=== PATIENT | female | born 1925 | race Caucasian/White ===

== ENCOUNTER → 2017-02-21 | Outpatient (CLI) | payer MEDICARE, BC | END | disposition home or self-care (01) | LOC: LABPAT 09:22 | PROVIDERS: ATTEND Orthopaedic Surgery | DX: Z01.812 Encounter for preprocedural laboratory examination (principal) | CPT/HCPCS: 87070 ==

== ENCOUNTER 2017-03-02 11:01 | Inpatient (IN) | payer MEDICARE, BC ==
[2017-02-18 09:21] VITALS: BMI 23.2
--- NOTE | 2017-03-02 08:13 | P.HPOR ---
History of Present Illness H&P Date: 03/02/17 Chief Complaint: Left hip pain The patient is an 89-year-old retired female presents with progressive left hip pain for the past several years. It's worse recently. She does use a cane. It limits her normal function and activities. Review of Systems All systems: negative Past Medical History Past Medical History: Coronary Artery Disease (CAD), GERD/Reflux, Hyperlipidemia , Hypertension, Myocardial Infarction (DE), Osteoarthritis (OA), Rheumatoid Arthritis (RA) Additional Past Medical History / Comment(s): LEAKY HEART VALVE, HEART MURMER, HX FX TO SPINE, uses cane or walker Last Myocardial Infarction Date:: ? History of Any Multi-Drug Resistant Organisms: None Reported Past Surgical History: Appendectomy, Cholecystectomy, Heart Catheterization, Hysterectomy, Joint Replacement, Orthopedic Surgery Additional Past Surgical History / Comment(s): surgery on left hand for reconstruction, RT HIP REPLACEMENT,KIP KNEE REPLACEMENTS x2, revision of total rt hip arthroplasty, left cataract Past Anesthesia/Blood Transfusion Reactions: No Reported Reaction Smoking Status: Never smoker - Past Family History Mother Family Medical History: Diabetes Mellitus Additional Family Medical History / Comment(s): HEART PROBLEMS- AT AGE 94 Sister(s) Family Medical History: Cancer Additional Family Medical History / Comment(s): also sister with lung cancer Father History Unknown: Yes Medications and Allergies Home Medications Medication Instructions Recorded Confirmed Type Cetirizine HCl [Zyrtec] 10 mg PO DAILY 08/04/14 02/18/17 History Esomeprazole Magnesium [NexIUM] 40 mg PO DAILY 08/04/14 02/18/17 History Fluticasone/Salmeterol [Advair 1 inhalation PO DAILY 08/04/14 02/18/17 History 250-50 Diskus] Potassium Chloride [Klor-Con 20] 20 meq PO DAILY 08/04/14 02/18/17 History ALPRAZolam [Xanax] 0.25 mg PO BID PRN 01/17/15 02/18/17 History HYDROcodone/APAP 7.5-325MG [[place] 1 tab PO Q6HR 01/17/15 02/18/17 History 7.5-325] Indapamide [Lozol] 2.5 mg PO DAILY 01/17/15 02/18/17 History Verapamil HCl [Verapamil ER] 120 mg PO 1200 02/18/17 02/18/17 History Allergies Allergy/AdvReac Type Severity Reaction Status Date / Time codeine Allergy Severe Nausea & Verified 02/18/17 09:07 Vomiting & Diarrhea morphine Allergy Severe Nausea & Verified 02/18/17 09:07 Vomiting & Diarrhea latex Allergy Rash/Hives Verified 02/18/17 09:07 adhesive AdvReac Intermediate Rash/Hives Verified 02/18/17 09:07 chocolate flavor AdvReac Diarrhea Verified 02/18/17 09:07 cocoa AdvReac Diarrhea Verified 02/18/17 09:07 Physical Examination - Hip left Gait: antalgic Tenderness with palpation: anterior Pain with motion: internal rotation and hip flexion ROM: extension: normal ROM: flexion: 70 degrees ROM: internal rotation: 15 degrees ROM: external rotation: 40 degrees Crepitus with motion: Yes Strength: flexion: 5/5 Strength: abduction: 5/5 Tests: impingement tests: positive Results - Diagnostic results Hip x-ray: image reviewed (Left hip 2 views shows severe osteoarthrosis) Assessment and Plan (1) Primary localized osteoarthrosis of left hip Status: Acute Plan: I talked with the patient regarding her treatment options. At this point she's quite limited because of pain related to her left hip osteoarthrosis. We will plan to proceed with left total hip arthroplasty. We will institute DVT prophylaxis postoperatively. The patient underwent preoperative medical evaluation by Dr. Dalal. Time with Patient: Greater than 30
[~2017-03-02 11:01] MED LIST: ACETAMINOPHEN TAB 500 MG TAB PO ONE; MELOXICAM 7.5 MG TAB PO ONE; TRANEXAMIC ACID 1,000 MG in SODIUM CHLORIDE 0.9% 100 ML IVPB ONE; ceFAZolin 2 GM in SODIUM CHLORIDE 0.9% 100 ML IVPB ONE
[2017-03-02] MEDS: ONDANSETRON 4 MG/2 ML VIAL IVP ONE ×2 (11:50→15:13)
[2017-03-02] MEDS: LACTATED RINGERS 1,000 ML IV SCH ×2 (11:50→16:15)
[2017-03-02] MEDS: MIDAZOLAM 2 MG/2 ML VIAL IV PRN ×2 (12:15→12:26)
[2017-03-02] MEDS ORDERED: SUCCINYLCHOLINE CHLORIDE 100 MG/5 ML SYR IV ONE (13:20)
[2017-03-02] MEDS ORDERED: HEPARIN SODIUM,PORCINE 10,000 UNIT/ML 1 ML VIAL ONE (13:20)
[2017-03-02] MEDS ORDERED: PROPOFOL 10 MG/ML 20 ML VIAL IV ONE (13:20)
[2017-03-02] MEDS ORDERED: PHENYLEPHRINE-0.9% NACL SYG 1 MG/10 ML SYRINGE ONE (13:20)
[2017-03-02] MEDS ORDERED: TRANEXAMIC ACID 1,000 MG/10 ML VIAL ONE (13:20)
[2017-03-02] MEDS ORDERED: SODIUM CHLORIDE 0.9% IRRIG 1,000 ML BTL IRRIGATION ONE (13:20)
[2017-03-02] MEDS ORDERED: fentaNYL (PF) 50 MCG/ML 2 ML AMP ONE (13:20)
[2017-03-02] MEDS ORDERED: SODIUM CHLORIDE 0.9% 100 ML BAG ONE (13:20)
[2017-03-02] MEDS ORDERED: MIDAZOLAM 2 MG/2 ML VIAL ONE (13:20)
[2017-03-02] MEDS ORDERED: LIDOCAINE 1% INJ 10MG/ML (20 ML MDV) ONE (13:20)
[2017-03-02] MEDS ORDERED: NALOXONE 0.4 MG/ML 1 ML VIAL IV PRN (15:08)
[2017-03-02] MEDS ORDERED: HYDROmorphone 1 MG/ML 1 ML SYRINGE IVP PRN (15:08)
[2017-03-02] MEDS ORDERED: ONDANSETRON 4 MG/2 ML VIAL IVP PRN (15:08)
[2017-03-02] MEDS ORDERED: HYDROcodone/APAP 5-325MG 1 EACH TAB PO PRN ×2 (15:08)
--- NOTE | 2017-03-02 15:08 | P.OP ---
Date of Procedure: 03/02/17 Preoperative Diagnosis: Left hip severe osteoarthrosis-primary Postoperative Diagnosis: Same Procedure(s) Performed: Left total hip [id number] Implants: Depuy Corail size 12 collared standard femoral stem, 32 mm +5 cobalt chrome femoral head, 52 mm acetabular shell, neutral polyethylene liner. Anesthesia: VINNYA Surgeon: Taj Galvez Estimated Blood Loss (ml): 150 Pathology: other (Femoral head) Condition: stable Disposition: PACU Indications for Procedure: The patient is an 89-year-old female who presents with progressive left hip pain secondary to osteoarthrosis despite conservative measures. A discussion of the risks and benefits of operative intervention versus continued conservative measures was made with patient. She opted to proceed with surgery. Operative risks to include infection, neurovascular injury, development of blood clots, possible component loosening, possible component failure, leg length discrepancy, possible dislocation and need for subsequent procedures was discussed. Informed consent was obtained. Operative Findings: As below Description of Procedure: The patient was brought to the operating room, and after induction of general anesthesia was placed into a lateral decubitus position. The bony prominences were appropriately padded. The pelvis was stabilized perpendicular to the floor with a pegboard. Preoperative templating was performed to estimate component positioning incises. The left lower extremity was prepped and draped in a normal fashion. A longitudinal incision extending over the greater trochanter was then made extending proximally to level the ASIS and distally in line with the femoral shaft. The skin and subcutaneous tissues were divided sharply. Electrocautery was used for hemostasis. The fascia dima and gluteus shamika fascia was split in line with the skin incision. The muscle fibers were bluntly dissected proximally. The gluteus medius muscle was identified in the anterior two thirds detached from the greater trochanter with electrocautery. The gluteus minimus tendon was verified and detached in a similar fashion. A wide capsulotomy is performed. The hip was gently dislocated. The neck cut was then made at a 45 shaft and proximal 1/2 cm above the level lesser trochanter with a sagittal saw. The head was extracted. Attention was then paid towards preparing the acetabular. Anterior and posterior retractors were placed. Remaining capsular and labral tissue sharply excised clearly defining the acetabular margins. I began reaming with a 45 mm reamer taking care to initially medialize, then reaming at 45 of abduction and 20 of anteversion. The potential reaming was performed up to 51 mm. This was taken to a bleeding bony surface. The trial 52 mm the tablet shell was inserted again at 45 of abduction and 20 of anteversion. There is good rim fit and stability. The trial component was removed. The final component inserted in the same orientation and was fully seated. I did place one posterior superior 6.5 x 3 mm cancellus screw with good purchase. A neutral polyethylene liner was gently impacted. Pulsatile lavage was utilized. Attention was then paid towards preparing the proximal femur. A box chisel was used to open the metaphyseal region. A canal finder was used to find the femoral canal. Sequential broaches at 15 of anteversion with the leg perpendicular to the floor. I went up to a size 12 standard broach. This was fully seated. There is good rotational stability. A calcar mill was used to fashion a medial calcar. A standard neck along with a 32 mm +5 trial head was placed. The hip was gently reduced. It was taken through range of motion. I had good stability in flexion and extension with internal and external rotation. I felt there was adequate denominational of soft tissue tension. The hip was gently dislocated and the trial components were then removed. The size 12 standard collared stem was inserted with the leg perpendicular floor in 15 of anteversion. Again there was good rotational stability. A 32 mm +5 cobalt chrome head was gently impacted. The hip was gently reduced. Again it was taken through range of motion and felt to be stable in flexion and extension with internal and external rotation. Again I felt there was adequate denominational of soft tissue tension. Pulsatile lavage was again utilized. The gluteus minimus and medius tendons were reattached the greater trochanter with # 2 Ethibond suture. The fascia dima and gluteus shamika fascia was closed in a similar fashion. She did not have much drainage therefore a drain was not placed. The subcutaneous tissues reapproximated with interrupted 2-0 Vicryl sutures. The skin was reapproximated with 3-0 subcuticular strata fix suture. Skin tape and adhesive was applied. A sterile dressing was applied. The patient was awoken from general anesthesia and transferred to recovery room in fair condition. Blood loss was estimated 150 mL. Complications were incurred. Sponge and needle counts were correct in the case.
[2017-03-02] MEDS: diphenhydrAMINE 50 MG/ML 1 ML VIAL IVP ONE ×2 (15:26→15:42)
[2017-03-02] MEDS: HYDROmorphone 1 MG/ML 1 ML SYRINGE IVP ONE ×2 (15:33→15:43)
[2017-03-02] MEDS ORDERED: HYDROmorphone 1 MG/ML 1 ML SYRINGE IVP ONE (15:33)
--- NOTE | 2017-03-02 15:39 | XR ---
EXAMINATION TYPE: XR Hip Limited LT DATE OF EXAM: 03/02/2017 COMPARISON: NONE HISTORY: Postop left hip TECHNIQUE: Left hip is examined in single AP view FINDINGS: Femoral prosthesis is present. Acetabular component is present. No acute fractures are evid ent. Postsurgical changes are present. IMPRESSION: 1. No acute fractures post left hip replacement
[2017-03-02] MEDS: HYDROmorphone 1 MG/ML 1 ML SYRINGE IVP PRN ×2 (16:13→21:06)
[2017-03-02 17:19] LABS: Basophils % (A) 0 %; CH 31.3; CHCM 34.1; Eosinophils # (A) 0.1 k/uL (0-0.7); Eosinophils % (A) 0 %; HCT 34.3 % (34.0-46.0); HDW 2.55; HGB 12.1 gm/dL (11.4-16.0); Luc # (Auto) 0.18; Luc % (Auto) 1; Lymphocytes # (A) 0.6 k/uL (1.0-4.8); Lymphocytes % (A) 5 %; MCH 32.6 pg (25.0-35.0); MCHC 35.2 g/dL (31.0-37.0); MCV 92.5 fL (80.0-100.0); Mean Platelet Volume 8.1; Monocytes # (A) 0.6 k/uL (0-1.0); Monocytes % (A) 5 %; Neutrophils # (A) 11.3 k/uL (1.3-7.7); Neutrophils % (A) 88 %; RBC 3.71 m/uL (3.80-5.40); RDW 13.4 % (11.5-15.5); WBC 12.8 k/uL (3.8-10.6); WBC (Perox) 13.19
[2017-03-02] MEDS: HYDROcodone/APAP 10-325MG 1 EACH TAB PO PRN (18:02)
--- NOTE | 2017-03-02 19:25 | CONS ---
DATE OF CONSULTATION: 03/02/2017 REASON FOR CONSULTATION: Advice regarding CAD, hypertension and other medical issues, requested by Orthopedic Surgery. HISTORY OF PRESENT ILLNESS: This 89-year-old woman with a past medical history of multiple medical problems, including CAD, hypertension, hyperlipidemia, history of myocardial infarction, rheumatoid arthritis, being followed by Dr. Dalal in the outpatient setting, underwent left total hip joint arthroplasty. Postoperatively the patient is slightly nauseous. There is no history of any fever, rigor or chills. No history of headache, loss of consciousness, seizures. The patient has a history of aortic stenosis, also. PAST MEDICAL HISTORY: 1. History of CAD. 2. GERD. 3. Hypertension. 4. Hyperlipidemia. 5. History of myocardial infarction. 6. History of DJD. 7. Rheumatoid arthritis. HOME MEDICATIONS: 1. Piggott 10 mg q.6 p.r.n. 2. Advair 250/50 one puff daily. 3. Verapamil ER 120 mg daily. 4. Klor-Con 20 mEq p.o. daily. 5. Lozol 2.5 mg daily. 6. Nexium 40 mg daily. 7. Zyrtec 10 mg daily. 8. Aspirin 81 mg daily. 9. Xanax 0.25 b.i.b. p.r.n. 10. Xarelto 10 mg daily. ALLERGIES: 1. CODEINE. 2. MORPHINE. 3. LATEX. 4. ADHESIVES. 5. CHOCOLATE FLAVOR. 6. COCOA. FAMILY HISTORY: History of diabetes mellitus in the family. SOCIAL HISTORY: No history smoking. No history of alcohol intake. REVIEW OF SYSTEMS: ENT: Diminished hearing. Diminished vision. CARDIOVASCULAR SYSTEM: As mentioned earlier. RESPIRATORY SYSTEM: No cough, hemoptysis. GI: No nausea, vomiting. : No dysuria, retention. NERVOUS SYSTEM: No numbness, weakness. ALLERGY/IMMUNOLOGY: No asthma, hayfever. MUSCULOSKELETAL: As mentioned earlier. HEMATOLOGY/ONCOLOGY: No history of anemia. ENDOCRINE: No history of diabetes or hypothyroidism. CONSTITUTIONAL: As mentioned earlier. DERMATOLOGIC: Negative. RHEUMATOLOGIC: Negative. PSYCHIATRY: As mentioned earlier. PHYSICAL EXAMINATION: Patient is alert and oriented x3. Pulse is 78, blood pressure 118/58, respirations 18, temperature 97.8, pulse ox 100% on 2 L. HEENT: Conjunctivae normal. Oral mucosa moist. NECK: No jugular venous congestion. No carotid bruit. No lymph node enlargement. CARDIAC: S1, S2 muffled. No S3. No S4. Ejection systolic murmur. RESPIRATORY: Breath sounds diminished at the bases. A few scattered rhonchi. No crackles. ABDOMEN: Soft. Non-tender. LEGS: Status post hip arthroplasty. NERVOUS SYSTEM: Higher functions as mentioned earlier. Moves all 4 limbs. No focal motor or sensory deficit. LYMPHATICS: No lymph node palpable in neck, axillae or groin. SKIN: No ulcer, rash or bleeding. LABS: Previous labs include hemoglobin 8.6. Albumin 2.4. ASSESSMENT: 1. Status post left total hip joint arthroplasty. 2. Postoperative nausea. 3. History of coronary artery disease. 4. History of gastroesophageal reflux disease. 5. Hypertension. 6. Hyperlipidemia. 7. Aortic stenosis. 8. History of rheumatoid arthritis. 9. History of cholecystectomy. 10. History of degenerative joint disease. 11. FULL CODE. RECOMMENDATIONS AND DISCUSSION: In this 89-year-old woman who presented with multiple medical issues, we will monitor the patient closely, continue the current medications, continue symptomatic treatment. I would recommend resumption of the home medications. Proton pump inhibitors. Pain medications. Closely follow with Orthopedic Surgery. See orders for further details. Further recommendations to follow. Thank you, Dr. Galvez, for letting us participate in the care of this patient. The patient may be asked to follow up with Dr. Dalal closely after discharge. ELI
[2017-03-02 19:49] VITALS: RESP 16
[2017-03-02] MEDS: PANTOPRAZOLE 40 MG/10 ML VIAL IVP SCH (21:10)
[2017-03-02] MEDS: ceFAZolin 2 GM in SODIUM CHLORIDE 0.9% 100 ML IVPB SCH (21:14)
[2017-03-02] MEDS: ONDANSETRON 4 MG/2 ML VIAL IVP PRN (21:19)
[2017-03-03] MEDS: ONDANSETRON 4 MG/2 ML VIAL IVP PRN ×2 (00:20→08:23)
[2017-03-03] MEDS: HYDROcodone/APAP 10-325MG 1 EACH TAB PO PRN ×3 (03:47→17:58)
[2017-03-03] MEDS: ceFAZolin 2 GM in SODIUM CHLORIDE 0.9% 100 ML IVPB SCH (05:02)
[2017-03-03 07:23] LABS: Basophils % (A) 0 %; CH 31.6; CHCM 33.7; Eosinophils % (A) 0 %; HDW 2.42; HGB 10.5 gm/dL (11.4-16.0); Luc # (Auto) 0.27; Luc % (Auto) 2; Lymphocytes # (A) 0.8 k/uL (1.0-4.8); Lymphocytes % (A) 7 %; MCV 94.3 fL (80.0-100.0); Mean Platelet Volume 7.5; Monocytes # (A) 1.2 k/uL (0-1.0); Monocytes % (A) 11 %; Neutrophils # (A) 9.2 k/uL (1.3-7.7); Neutrophils % (A) 80 %; RBC 3.29 m/uL (3.80-5.40); RDW 13.9 % (11.5-15.5); WBC 11.4 k/uL (3.8-10.6); WBC (Perox) 11.92
[2017-03-03] MEDS: SYMBICORT 80-4.5 MCG INHALER INHALATION SCH (08:03)
[2017-03-03] MEDS: INDAPAMIDE 2.5 MG TAB PO SCH (08:19)
[2017-03-03] MEDS: traMADol 50 MG TAB PO PRN ×2 (08:23→20:58)
[2017-03-03] MEDS: RIVAROXABAN 10 MG TAB PO SCH (08:23)
[2017-03-03] MEDS: PANTOPRAZOLE 40 MG/10 ML VIAL IVP SCH (08:23)
[2017-03-03] MEDS: POTASSIUM CHLORIDE ER 20 MEQ TAB.ER PO SCH (08:23)
--- NOTE | 2017-03-03 11:47 | P.PN ---
Subjective Principal diagnosis: s/p left total hip arthroplasty Patient seen today resting in hospital bed, she appears comfortable. Her pain is well controlled better today. She denies chest pain, shortness of breath, nausea or vomitting, fever or chills Objective - Vital Signs Vital signs: Vital Signs Temp 98.7 F 03/03/17 07:00 Pulse 94 03/03/17 07:00 Resp 16 03/03/17 07:00 BP 92/55 03/03/17 07:00 Pulse Ox 96 03/03/17 08:14 Intake & Output 03/02/17 03/03/17 03/03/17 18:59 06:59 18:59 Intake Total 1300 240 Output Total 320 590 250 Balance 980 -350 -250 Weight 56.699 kg 56.699 kg Intake: IV 1300 240 Lactated Ringers 1,000 ml 240 @ 20 mls/hr IV .Q24H KAROL Rx#:[id number] Output: Urine 170 590 250 Uretheral (Chavis) 420 250 Estimated Blood Loss 150 Other: Voiding Method Indwelling Catheter Indwelling Catheter - Exam Left lower extremity: Incision is clean, dry and intact. Minimal soft tissue swelling anterior left thigh. Calf is soft, no tenderness with palpation. Plantar flexion, dorsiflexion , EHL, FHL are intact. Sensory exam to lite touch intact, dorsal pedis pulse is 2+ - Labs CBC & Chem 7: 03/03/17 07:00 Labs: Abnormal Lab Results - Last 24 Hours (Table) 03/02/17 03/03/17 Range/Units 16:52 07:00 WBC 12.8 H 11.4 H (3.8-10.6) k/uL RBC 3.71 L 3.29 L (3.80-5.40) m/uL Hgb 10.5 L (11.4-16.0) gm/dL Hct 31.0 L (34.0-46.0) % Neutrophils # 11.3 H 9.2 H (1.3-7.7) k/uL Lymphocytes # 0.6 L 0.8 L (1.0-4.8) k/uL Monocytes # 1.2 H (0-1.0) k/uL Assessment and Plan Plan: Assessment: 1. Post op day #1 s/p left hernán Plan: 1. Pain control, continue use of oral medications 2. Continue PT 3. GI and DVT prophylaxis, continue Xarelto 10mg 4. Medical recommendations 5. Encourage incentive spirometer 6. Discharge planning: plan to dischage to rehab in the next few days Time with Patient: Less than 30
[2017-03-03] MEDS: VERAPAMIL SR 120 MG TABLET.ER PO SCH (12:19)
[2017-03-03] MEDS ORDERED: LIDOCAINE 1% INJ 10MG/ML (20 ML MDV) ONE (13:20)
[2017-03-03] MEDS ORDERED: fentaNYL (PF) 50 MCG/ML 2 ML AMP ONE (13:20)
[2017-03-03] MEDS ORDERED: HEPARIN SODIUM,PORCINE 10,000 UNIT/ML 1 ML VIAL ONE (13:20)
[2017-03-03] MEDS ORDERED: TRANEXAMIC ACID 1,000 MG/10 ML VIAL ONE (13:20)
[2017-03-03] MEDS ORDERED: SUCCINYLCHOLINE CHLORIDE 100 MG/5 ML SYR IV ONE (13:20)
[2017-03-03] MEDS ORDERED: SODIUM CHLORIDE 0.9% 100 ML BAG ONE (13:20)
[2017-03-03] MEDS ORDERED: SODIUM CHLORIDE 0.9% IRRIG 1,000 ML BTL IRRIGATION ONE (13:20)
[2017-03-03] MEDS ORDERED: PHENYLEPHRINE-0.9% NACL SYG 1 MG/10 ML SYRINGE ONE (13:20)
[2017-03-03] MEDS ORDERED: MIDAZOLAM 2 MG/2 ML VIAL ONE (13:20)
[2017-03-03] MEDS ORDERED: PROPOFOL 10 MG/ML 20 ML VIAL IV ONE (13:20)
[2017-03-03] MEDS: ALPRAZolam 0.25 MG TAB PO PRN (13:54)
--- NOTE | 2017-03-03 15:04 | XR ---
EXAMINATION TYPE: XR chest 1V portable DATE OF EXAM: 03/03/2017 COMPARISON: 01/25/2015 HISTORY: Shortness of breath TECHNIQUE: Single view of the chest is obtained. FINDINGS: Scattered senescent parenchymal changes noted. Hyperinflation compatible with COPD. No evidence for infiltrate. No evidence for atelectasis. Heart size is stable. Mediastinal structures are stable and grossly unremarkable. No evidence for hilar prominence. Degenerative changes dorsal spine. IMPRESSION: 1. No evidence for acute pulmonary disease.
[2017-03-03 18:07] LABS: Appearance,Urine Clear (Clear); Bilirubin,Urine Negative (Negative); Glucose,Urine (UA) Negative (Negative); Ketones,Urine 3+ (Negative); Leukocyte Esterase,Urine Large (Negative); Mucus,Urine Rare /hpf; Nitrite,Urine Negative (Negative); PH, Urine 5.5 (5.0-8.0); Particle Count 3252; Protein,Urine Trace (Negative); RBC,Urine 11 /hpf (0-5); Squamous Epithelial Cell,Urine <1 /hpf (0-4); UA Billing (MACRO vs. MICRO) MICRO; Urobilinogen,Urine <2.0 mg/dL (<2.0); WBC,Urine 41 /hpf (0-5)
[2017-03-03] MEDS: PANTOPRAZOLE 40 MG TABLET PO SCH (18:25)
[2017-03-04] MEDS: HYDROcodone/APAP 10-325MG 1 EACH TAB PO PRN ×4 (00:26→22:38)
[2017-03-04] MEDS: LACTATED RINGERS 1,000 ML IV SCH (05:17)
[2017-03-04] MEDS: SYMBICORT 80-4.5 MCG INHALER INHALATION SCH (07:16)
[2017-03-04] MEDS: PANTOPRAZOLE 40 MG TABLET PO SCH ×2 (07:19→16:48)
[2017-03-04] MEDS: traMADol 50 MG TAB PO PRN (07:19)
[2017-03-04] MEDS: POTASSIUM CHLORIDE ER 20 MEQ TAB.ER PO SCH (08:05)
[2017-03-04] MEDS: RIVAROXABAN 10 MG TAB PO SCH (08:05)
[2017-03-04] MEDS: INDAPAMIDE 2.5 MG TAB PO SCH (08:09)
--- NOTE | 2017-03-04 09:49 | P.DS ---
Providers Date of admission: 03/02/17 11:01 Expected date of discharge: 03/05/17 Attending physician: Taj Galvez Consults: 03/02/17 15:08 Consult Physician Routine Consulting Provider: Tejas Frias Consult Reason/Comments: medical management Do you want consulting provider notified?: Yes Primary care physician: Linda Katlin [facility] Course: Date of admission: 03/02/2017 Date of discharge: 03/05/2017 Admission diagnosis: Status post left total hip arthroplasty Discharge diagnosis: Same Attending physician: Dr. Galvez Surgical procedures: Left total hip arthroplasty Brief history: Patient is a 89-year-old female with a history of progressive primary left hip osteoarthritis. At this point patient has failed conservative treatment measures and has opted to proceed with a elective left total hip arthroplasty. Hospital course: Details of patient's surgery can be found in operative report. Patient tolerated the procedure well and was subsequently transported to orthopedic floor. Patient's orthopeidc and medical care was provided daily. Patient had daily laboratory tests performed for evaluation of overall blood counts. Patient had daily physical therapy to include strengthening range of motion as well as education with walker ambulation. Patient was treated with Xarelto for their postoperative DVT prophylaxis during their inpatient stay. Patient was noted to have a relatively uneventful postoperative course. Patient reported satisfactory pain control with oral pain medications by postoperative day 0. Patient showed satisfactory progress with physical therapy. Patient moved steadily through the program and had no difficulty meeting the goals by postoperative day 3. Given patient's otherwise satisfactory course and having met physical therapy goals, plan is to discharge patient rehab on postoperative day 3. Discharge condition/disposition: Patient will be discharged to rehab in stable condition. Discharge medications: Instructions are given on resumption of patient's normal daily medications per primary care recommendation, in addition patient will be prescribed Blanchard 10 mg/325 mg, Xarelto 10 mg, Colace 100 mg, xanax 0.25 mg, protonix 40 mg. Discharge instructions: 1. Wound care and infection precautions, keep incision dry and covered while showering, no lotions, creams, moisturizers. No soaking, tubs, pools, hottubs. Do not scrub over the incision. 2. Weight-bear as tolerated with walker / cane until follow-up. 3. Ice and elevate when necessary. Do not exceed 20 minutes per hour with ice pack. 4. Utilize compression sleeve until seen at first follow up appointment. 5. Visiting nursing care. 6. Home physical therapy. 7. Pain meds and anticoagulants per prescription. 8. Pain medication has potential to cause constipation. Increase oral fluid and fiber intake. Contact primary care provider if you have not had a bowel movement within 48 hours after discharge 9. No anti-inflammatory medication until discussed at first post operative visit, this including Motrin, Aleve, Mobic, Diclofenac. 10. Follow up in office at 2 weeks postop with Arslan Bartlett PA-C 11. Follow up with your primary care doctor 7-10 days after discharge. 12. Contact [facility] with any questions, . Procedures: Left total hip arthroplasty Patient Condition at Discharge: Good Plan - Discharge Summary New Discharge Prescriptions: New Rivaroxaban [Xarelto] 10 mg PO DAILY #12 tab Docusate [Colace] 100 mg PO DAILY #30 capsule ALPRAZolam [Xanax] 0.25 mg PO BID PRN #20 tab PRN Reason: Anxiety HYDROcodone/APAP 10-325MG [Blanchard 10-325] 1 each PO Q6H PRN #30 tab PRN Reason: Pain Scale 1 To 5 Pantoprazole [Protonix] 40 mg PO AC-BID tab Continue Fluticasone/Salmeterol [Advair 250-50 Diskus] 1 puff INHALATION RT-DAILY Esomeprazole Magnesium [NexIUM] 40 mg PO DAILY Potassium Chloride [Klor-Con 20] 20 meq PO DAILY Cetirizine HCl [Zyrtec] 10 mg PO DAILY Indapamide [Lozol] 2.5 mg PO DAILY Aspirin 81 mg PO DAILY #1 chewable Verapamil HCl [Verapamil ER] 120 mg PO DAILY@1200 Discontinued ALPRAZolam [Xanax] 0.25 mg PO BID PRN PRN Reason: Anxiety Discharge Medication List Cetirizine HCl [Zyrtec] 10 mg PO DAILY 08/04/14 [History] Esomeprazole Magnesium [NexIUM] 40 mg PO DAILY 08/04/14 [History] Fluticasone/Salmeterol [Advair 250-50 Diskus] 1 puff INHALATION RT-DAILY [History] Potassium Chloride [Klor-Con 20] 20 meq PO DAILY 08/04/14 [History] Indapamide [Lozol] 2.5 mg PO DAILY 01/17/15 [History] Aspirin 81 mg PO DAILY #1 chewable 01/27/15 [Rx] Verapamil HCl [Verapamil ER] 120 mg PO DAILY@1200 02/18/17 [History] Rivaroxaban [Xarelto] 10 mg PO DAILY #12 tab 03/02/17 [Rx] ALPRAZolam [Xanax] 0.25 mg PO BID PRN #20 tab 03/05/17 [Rx] Docusate [Colace] 100 mg PO DAILY #30 capsule 03/05/17 [Rx] HYDROcodone/APAP 10-325MG [Blanchard 10-325] 1 each PO Q6H PRN #30 tab 03/05/17 [Rx] Pantoprazole [Protonix] 40 mg PO AC-BID tab 03/05/17 [Rx] Follow up Appointment(s)/Referral(s): Tamy Orosco, [NON-STAFF] - As Needed Jerrod Bartlett, NANCY [[employer]] - 2 Weeks Activity/Diet/Wound Care/Special Instructions: Orthopedic Discharge Instructions: 1. Wound care and infection precautions, keep incision dry and covered while showering, no lotions, creams, moisturizers. No soaking, pools, hot tubs. Do not scrub over incision. 2. Weight-bear as tolerated with walker / cane until follow-up. 3. Ice and elevate when necessary. Do not exceed 20 minutes per hour with ice pack. 4. Utilize compression sleeve until seen at first follow up appointment. 5. Visiting nursing care. 6. Home physical therapy. 7. Pain meds and anticoagulants per prescription. 8. Pain medication has potential to cause constipation. Increase oral fluid and fiber intake. Contact primary care provider if you have not had a bowel movement within 48 hours after discharge. 9. No anti-inflammatory medication until discussed at first post operative visit, this including Motrin, Aleve, Mobic, Diclofenac. 10. Follow up in office at 2 weeks postop with Arslan Bartlett PA-C 11. Follow up with your primary care doctor 7-10 days after discharge. 12. Contact [facility] with any questions, . Discharge Disposition: TRANSFER TO SNF/ECF
--- NOTE | 2017-03-04 10:35 | P.PN ---
Subjective Principal diagnosis: s/p left total hip arthroplasty Patient seen today resting in hospital bed, she appears comfortable. Slight increase in pain today. She denies chest pain, shortness of breath, nausea or vomitting, fever or chills Objective - Vital Signs Vital signs: Vital Signs Temp 99.0 F 03/04/17 07:00 Pulse 92 03/04/17 07:00 Resp 16 03/04/17 07:00 BP 97/50 03/04/17 07:00 Pulse Ox 92 L 03/04/17 07:00 Intake & Output 03/03/17 03/04/17 03/04/17 18:59 06:59 18:59 Intake Total 400 100 Output Total 550 300 Balance -550 400 -200 Weight 56.699 kg Intake: Oral 400 100 Output: Urine 550 300 Uretheral (Chavis) 250 Other: Voiding Method Bedside Commode # Voids 1 1 1 - Exam Left lower extremity: Incision is clean, dry and intact. Minimal soft tissue swelling anterior left thigh. Calf is soft, no tenderness with palpation. Plantar flexion, dorsiflexion , EHL, FHL are intact. Sensory exam to lite touch intact, dorsal pedis pulse is 2+ - Labs CBC & Chem 7: 03/03/17 07:00 Labs: Abnormal Lab Results - Last 24 Hours (Table) 03/03/17 Range/Units 17:50 Urine Protein Trace H (Negative) Urine Ketones 3+ H (Negative) Urine Blood Moderate H (Negative) Ur Leukocyte Esterase Large H (Negative) Urine RBC 11 H (0-5) /hpf Urine WBC 41 H (0-5) /hpf Urine Mucus Rare H (None) /hpf Assessment and Plan Plan: Assessment: 1. Post op day #2 s/p left hernán Plan: 1. Pain control, continue use of oral medications 2. Continue PT 3. GI and DVT prophylaxis, continue Xarelto 10mg 4. Medical recommendations 5. Consider anti biotic for recent urinalysis 6. Encourage incentive spirometer 7. Discharge planning: plan to dischage to rehab tomorrow Time with Patient: Less than 30
[2017-03-04 11:53] LABS: Basophils % (A) 0 %; CHCM 33.1; Eosinophils % (A) 0 %; HCT 31.7 % (34.0-46.0); HDW 2.47; HGB 10.8 gm/dL (11.4-16.0); Luc # (Auto) 0.29; Luc % (Auto) 3; Lymphocytes # (A) 0.9 k/uL (1.0-4.8); Lymphocytes % (A) 9 %; MCH 31.9 pg (25.0-35.0); MCHC 33.9 g/dL (31.0-37.0); Mean Platelet Volume 7.5; Monocytes # (A) 0.9 k/uL (0-1.0); Monocytes % (A) 9 %; Neutrophils # (A) 8.2 k/uL (1.3-7.7); Neutrophils % (A) 79 %; RBC 3.38 m/uL (3.80-5.40); RDW 13.6 % (11.5-15.5); WBC 10.4 k/uL (3.8-10.6); WBC (Perox) 10.98
[2017-03-04] MEDS: VERAPAMIL SR 120 MG TABLET.ER PO SCH (12:19)
--- NOTE | 2017-03-04 13:45 | PN ---
DATE OF SERVICE: 03/03/2017 This 89-year-old woman was admitted with left hip arthroplasty, improved significantly. No chest pain or palpitation. No fever, no shortness of breath. On exam, alert and oriented x3. Pulse 62, blood pressure 85/43, respirations 16, temperature is 98.6, pulse ox 94% on room air. HEENT: Conjunctive normal. NECK: No jugular venous distension. CARDIOVASCULAR SYSTEM: S1, S2, muffled. esm RESPIRATORY: Breath sounds diminished at the bases. A few rhonchi, no crackles. ABDOMEN: Soft. LEGS: Status post hip arthroplasty. NERVOUS SYSTEM: No motor deficits. LABS: WBC 11.4, hemoglobin is 10.5. ASSESSMENT: 1. Status post left total hip arthroplasty. 2. Relative hypotension. 3. Postoperative nausea, improved. 4. Coronary artery disease. 5. History of gastroesophageal reflux disease. 6. Hypertension. 7. Hyperlipidemia. 8. Aortic stenosis. 9. Anemia, dilutional. 10. Increased WBC, reactive. RECOMMENDATION: Recommend to continue with the current medication. Continue with the symptomatic treatment. Otherwise, PT, OT evaluation. Closely follow with Orthopedic Surgery for the symptomatic treatment provided. Further recommendations to follow. MTDD
[2017-03-04] MEDS: SODIUM CHLORIDE 0.9% 1,000 ML IV SCH (20:00)
[2017-03-05] MEDS: SODIUM CHLORIDE 0.9% 1,000 ML IV SCH (06:50)
[2017-03-05] MEDS: LACTATED RINGERS 1,000 ML IV SCH (06:50)
[2017-03-05 07:09] LABS: Basophils % (A) 0 %; CH 31.2; CHCM 33.2; Eosinophils # (A) 0.1 k/uL (0-0.7); Eosinophils % (A) 1 %; HCT 27.8 % (34.0-46.0); HGB 9.4 gm/dL (11.4-16.0); Luc # (Auto) 0.25; Luc % (Auto) 4; Lymphocytes # (A) 0.9 k/uL (1.0-4.8); Lymphocytes % (A) 14 %; MCH 31.8 pg (25.0-35.0); MCHC 33.7 g/dL (31.0-37.0); MCV 94.4 fL (80.0-100.0); Mean Platelet Volume 7.6; Monocytes # (A) 0.7 k/uL (0-1.0); Monocytes % (A) 11 %; Neutrophils # (A) 4.3 k/uL (1.3-7.7); Neutrophils % (A) 69 %; RBC 2.95 m/uL (3.80-5.40); RDW 13.6 % (11.5-15.5); WBC 6.2 k/uL (3.8-10.6); WBC (Perox) 6.36
[2017-03-05] MEDS: SYMBICORT 80-4.5 MCG INHALER INHALATION SCH (07:17)
[2017-03-05 07:58] VITALS: BP 101/50; TEMP 98.2
[2017-03-05] MEDS: INDAPAMIDE 2.5 MG TAB PO SCH (08:10)
[2017-03-05] MEDS: HYDROcodone/APAP 10-325MG 1 EACH TAB PO PRN ×2 (08:36→14:51)
[2017-03-05] MEDS: PANTOPRAZOLE 40 MG TABLET PO SCH (08:37)
[2017-03-05] MEDS: POTASSIUM CHLORIDE ER 20 MEQ TAB.ER PO SCH (08:37)
[2017-03-05] MEDS: RIVAROXABAN 10 MG TAB PO SCH (08:37)
[2017-03-05 09:17] VITALS: PULSE 91
--- NOTE | 2017-03-05 10:30 | P.PN ---
Subjective Principal diagnosis: s/p left total hip arthroplasty Patient seen today resting in hospital bed, she appears comfortable. She denies chest pain, shortness of breath, nausea or vomitting, fever or chills Objective - Vital Signs Vital signs: Vital Signs Temp 98.2 F 03/05/17 07:57 Pulse 91 03/05/17 08:00 Resp 16 03/05/17 08:00 BP 101/50 03/05/17 07:57 Pulse Ox 94 L 03/05/17 07:57 Intake & Output 03/04/17 03/05/17 03/05/17 18:59 06:59 18:59 Intake Total 100 950 100 Output Total 900 400 Balance -800 950 -300 Intake: Intake, IV Titration 950 Amount Sodium Chloride 0.9% 1, 950 000 ml @ 100 mls/hr IV . Q10H KAROL Rx#:[id number] Oral 100 100 Output: Urine 900 400 Other: Voiding Method Bedside Commode Bedside Commode # Voids 1 - Exam Left lower extremity: Incision is clean, dry and intact. Minimal soft tissue swelling anterior left thigh. Calf is soft, no tenderness with palpation. Plantar flexion, dorsiflexion , EHL, FHL are intact. Sensory exam to lite touch intact, dorsal pedis pulse is 2+ - Labs CBC & Chem 7: 03/05/17 06:41 Labs: Abnormal Lab Results - Last 24 Hours (Table) 03/04/17 03/05/17 Range/Units 11:35 06:41 RBC 3.38 L 2.95 L (3.80-5.40) m/uL Hgb 10.8 L 9.4 L (11.4-16.0) gm/dL Hct 31.7 L 27.8 L (34.0-46.0) % Neutrophils # 8.2 H (1.3-7.7) k/uL Lymphocytes # 0.9 L 0.9 L (1.0-4.8) k/uL Assessment and Plan Plan: Assessment: 1. Post op day #3 s/p left hernán Plan: 1. Pain control, continue use of oral medications 2. Continue PT 3. GI and DVT prophylaxis, continue Xarelto 10mg 4. Medical recommendations 5. Encourage incentive spirometer 6. Discharge planning: plan to dischage to rehab today Time with Patient: Less than 30
[2017-03-05] MEDS: VERAPAMIL SR 120 MG TABLET.ER PO SCH (11:30)
[2017-03-05] MEDS: ALPRAZolam 0.25 MG TAB PO PRN (14:17)
--- NOTE | 2017-03-06 07:26 | PN ---
DATE OF SERVICE: 03/04/2017 This 89-year-old woman who was admitted after left total hip arthroplasty has relative hypotension. The patient is improving significantly. No chest pain. No palpitations. No fever. On exam, alert and oriented x3. Pulse 92, blood pressure 97/50, respiration 16, temperature 99 degrees, pulse ox 92% on room air. HEENT: Conjunctivae normal. NECK: No jugular venous distention. CARDIOVASCULAR: S1, S2 muffled. No S3. No S4. Ejection systolic murmur present. RESPIRATORY: Breath sounds diminished at the bases. A few scattered rhonchi. ABDOMEN: Soft. Non-tender. LEGS: Status post surgery. NERVOUS SYSTEM: No focal deficit. LABS: Hemoglobin 10.8, white count 10.4. UA noted. ASSESSMENT: 1. Status post left hip joint arthroplasty. 2. Relative hypotension. 3. Increased white count, improved. 4. Postoperative nausea, improved. 5. Rule out urinary tract infection. 6. Coronary artery disease. 7. History of gastroesophageal reflux disease. 8. Hypertension. 9. Hyperlipidemia. 10. History of aortic stenosis. 11. Anemia, dilutional. 12. Increased white count, reactive. RECOMMENDATIONS AND DISCUSSION: I recommend to continue current medications, continue with monitoring, symptomatic treatment. I would recommend holding off the antibiotics. I would recommend urine culture. Further recommendations to follow. MTDD
--- NOTE | 2017-03-06 15:09 | PN ---
DATE OF SERVICE: 03/05/2017 This 89-year-old woman who was admitted after left total hip joint arthroplasty is improving significantly. The patient had relative hypotension. No chest pain. No palpation. No fever. ECF rehab is being planned. Past medical history reviewed. REVIEW OF SYSTEMS: CARDIOVASCULAR SYSTEM: As mentioned earlier. RESPIRATORY SYSTEM: No cough. GI: No nausea, vomiting. : No dysuria, retention. NERVOUS SYSTEM: No numbness, weakness. Current medications are reviewed, includin. Winnett 10 mg. 2. Xanax. 3. Dilaudid. 4. Symbicort. 5. Lozol. 6. Narcan. 7. Zofran. 8. K-Dur. 9. Protonix. 10. Xarelto. 11. Ultram. 12. Isoptin. PHYSICAL EXAM: Patient is alert and oriented x3. Pulse 96, blood pressure 101/50 , respiration 16, temperature 98.2, pulse ox 94% on room air. HEENT: Conjunctivae normal. NECK: No jugular venous distention. CARDIOVASCULAR: S1, S2 muffled. Ejection systolic murmur. RESPIRATORY: Breath sounds diminished at the bases. A few scattered rhonchi. No crackles. ABDOMEN: Soft, non-tender. LEGS: Status post arthroplasty. NERVOUS SYSTEM: No focal deficit. LABS: Hemoglobin 9.4. ASSESSMENT: 1. Status post left total hip joint arthroplasty. 2. Relative hypotension. 3. Postoperative nausea, improved. 4. Coronary artery disease. 5. History of gastroesophageal reflux disease. 6. Hypertension. 7. Hyperlipidemia. 8. History of aortic stenosis. 9. Anemia, dilutional. 10. Increased white count, reactive. RECOMMENDATIONS AND DISCUSSION: I recommend to continue current medications, continue with symptomatic treatment. Otherwise, at this time I recommend follow- up labs and hold the blood pressure medications Lozol and Isoptin if systolic is less than 110. Discussed with the staff. Further recommendations to follow. MTDD
== END 2017-03-05 17:46 | DRG 470 ==
LOC: 2ORMAIN 11:01 → 5MS5E 14:52
PROVIDERS: ADMIT Orthopaedic Surgery; ATTEND Orthopaedic Surgery
PROC: 30233N0 Transfusion of Autologous Red Blood Cells into Peripheral Vein, Percutaneous Approach (ICD-10-PCS; 2017-03-02)
PROC: 0SRB02A Replacement of Left Hip Joint with Metal on Polyethylene Synthetic Substitute, Uncemented, Open Approach (ICD-10-PCS; principal; 2017-03-02 13:00)
DX: M16.12 Unilateral primary osteoarthritis, left hip (principal); I95.9 Hypotension, unspecified; M06.9 Rheumatoid arthritis, unspecified; I35.0 Nonrheumatic aortic (valve) stenosis; D64.9 Anemia, unspecified; J44.9 Chronic obstructive pulmonary disease, unspecified; I10 Essential (primary) hypertension; E78.5 Hyperlipidemia, unspecified; I25.2 Old myocardial infarction; R11.0 Nausea; I25.10 Atherosclerotic heart disease of native coronary artery without angina pectoris; M24.852 Other specific joint derangements of left hip, not elsewhere classified; D72.829 Elevated white blood cell count, unspecified; K21.9 Gastro-esophageal reflux disease without esophagitis; R01.1 Cardiac murmur, unspecified; E04.2 Nontoxic multinodular goiter; K58.9 Irritable bowel syndrome, unspecified; K57.30 Diverticulosis of large intestine without perforation or abscess without bleeding; H91.90 Unspecified hearing loss, unspecified ear; H54.7 Unspecified visual loss; Z80.1 Family history of malignant neoplasm of trachea, bronchus and lung; Z83.3 Family history of diabetes mellitus; Z96.653 Presence of artificial knee joint, bilateral; Z96.641 Presence of right artificial hip joint; Z90.49 Acquired absence of other specified parts of digestive tract; Z79.01 Long term (current) use of anticoagulants; Z79.82 Long term (current) use of aspirin; Z71.3 Dietary counseling and surveillance; Z82.49 Family history of ischemic heart disease and other diseases of the circulatory system; Z90.710 Acquired absence of both cervix and uterus; Z98.42 Cataract extraction status, left eye; Z79.891 Long term (current) use of opiate analgesic; Z79.51 Long term (current) use of inhaled steroids; Z79.899 Other long term (current) drug therapy; Z87.81 Personal history of (healed) traumatic fracture; Z91.040 Latex allergy status; Z88.5 Allergy status to narcotic agent; Z91.018 Allergy to other foods; Z91.048 Other nonmedicinal substance allergy status; Z87.828 Personal history of other (healed) physical injury and trauma; Z86.69 Personal history of other diseases of the nervous system and sense organs; Z86.59 Personal history of other mental and behavioral disorders; Z98.61 Coronary angioplasty status
CPT/HCPCS: 71010; 73501; 81001; 85025; 86850; 86900; 86901; 94640